=== PATIENT | male | born 1995 | race Caucasian/White ===

== ENCOUNTER 2017-05-14 17:44 | Emergency (ER) | payer OTHER ==
[~2017-05-14] VITALS: Ht 182.9 cm; Wt 90.7 kg
[2017-05-14 17:59] VITALS: BP 155/98
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
[2017-05-14] MEDS ORDERED: HYDROcodone/APAP 5/325MG 1 TAB TABLET PO ONE (18:15)
[2017-05-14] MEDS ORDERED: HYDR-971 PO (18:24)
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
== END 2017-05-14 18:43 | disposition home or self-care (01) ==
LOC: ER 17:44
DX: S62.101A Fracture of unspecified carpal bone, right wrist, initial encounter for closed fracture (principal); V86.36XA Unspecified occupant of dirt bike or motor/cross bike injured in traffic accident, initial encounter; X58.XXXA Exposure to other specified factors, initial encounter; Y93.55 Activity, bike riding; Y99.8 Other external cause status; Y92.488 Other paved roadways as the place of occurrence of the external cause
CPT/HCPCS: 29125; 73090; 73110; 73130; 99284-25